=== PATIENT | female | born 1940 | race Caucasian/White ===

== ENCOUNTER 2023-02-21 18:12 | Observation (INO) | payer MEDICARE, SELFPAY ==
[2023-02-21] VITALS (21 sets, daily range): BP systolic 135–189; BP diastolic 74–110; PULSE 63–73; RESP 12–22; TEMP 36.5–36.7; O2SAT 16–99; BMI 32.9
--- NOTE | 2023-02-21 18:14 | ECG_ITS ---
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 Measurements Intervals [place] Rate: 69 P: 50 W[place]: 187 QRS: -31 QRSD: 145 T: -3 QT: 419 QTc: 451 Interpretive Statements SINUS RHYTHM LEFT AXIS DEVIATION [QRS AXIS < -30] RIGHT BUNDLE BRANCH BLOCK [120+ ms QRS DURATION, UPRIGHT V1, 40+ ms S IN I/aVL/V4/V5/V6] No previous ECG available for comparison Electronically Signed On 02-22-2023 1:07:43 CDT by Yuki Ojeda M.D. [email or web address].[employer]/store/OM/[id number]
--- NOTE | 2023-02-21 18:14 | XRR_ITS ---
PROCEDURE INFORMATION: Exam: XR Chest Exam date and time: 02/21/2023 6:58 PM Age: 82 years old Clinical indication: Chest wall pain; Additional info: Cp TECHNIQUE: Imaging protocol: Radiologic exam of the chest. Views: 1 view. COMPARISON: No relevant prior studies available. FINDINGS: Lungs: Mild interstitial pulmonary edema with superimposed atelectasis versus pneumonia in the left lingula and left lower lobe. Pleural spaces: No pleural effusion. No pneumothorax. Heart/Mediastinum: Cardiac silhouette is moderately enlarged. Mediastinal contours are unremarkable. Vasculature: Vascular calcifications in the aorta. The aorta is tortuous. Bones/joints: Bones are diffusely osteopenic. Degenerative changes in the spine and shoulders. Moderate scoliosis in the visualized spine. XR/XR chest 1V portable [id number] IMPRESSION: 1. Mild interstitial pulmonary edema with superimposed atelectasis versus pneumonia in the left lingula and left lower lobe. Recommend followup chest imaging to insure resolution of these findings. 2. Incidental/nonacute findings are listed in the report.
--- NOTE | 2023-02-21 18:38 | ED_ITS ---
HPI - Chest Pain General: Chief Complaint: Chest Pain Stated Complaint: Bp, Tightness in chest Time Seen by Provider: 02/21/23 18:38 History of Present Illness: 82-year-old female presents emergency department with complaints of feeling chest tightness and chest pain earlier today. She states the pain does not radiate. She is in no acute distress at present. She states she is recently been seen by her primary care provider and had blood pressure medication adjustments and she states that she feels like her blood pressure is significantly elevated despite taking her antihypertensive medications. She states that her chest tightness is a 3 out of 10 and nothing seems to make it better nothing seems to make it worse. Review of Systems General: Reports: 10 or more systems reviewed and unremarkable except in HPI and below Card: Reports: chest pain Physical Exam Narrative: EXAM NARRATIVE: Constitutional: the patient appears well nourished and with normal developement. Vital signs reviewed as documented. HENMT: Normocephalic, atraumatic. Extermal ears with normal appearance without drainage. Nose without drainage, normal appearance. Mucus membranes moist. Neck is supple, No jugular venous distension, trachea is midline, no appreciable carotid bruits. No lymphadenopathy. No meningeal signs. Flexion, extension and lateral rotation is without pain. Eyes: Pupils are equal, round, reactive to light and accomidation. No scleral icterus. Extra-ocular movement are intact. Thorax is symmetrical and with equal rise and fall with respirations. Resp: Lungs are clear to auscultation. No wheezes, rales, crackles or ronchi at pesent. Cardio: Regular rate and rhythm. Positive S1, S2. No appreciable murmurs, rubs or gallops. GI: Abdominal exam reveals normal bowel sounds to all quadrants. No organomegaly. No obvious palpable masses noted. No hepatomegaly appreciated. Soft, nontender to palpation. Extremity: Extremities are non-edematous and both femoral and pedal pulses are 2+ and equal bilaterally. Moves all extremities well, sensation in all extremities. Neuro: Alert and oriented x4, person, place, time and situation. Cranial nerves II through XII are grossly intact, there is no focal neurological deficits that I can appreciate at present. Motor strength in the upper and lower extremities are equal and bilateral 5/5. Psych: Cooperative, calm, normal thought process, appropriate judgment. Skin: No lesions, rashes. No gross abnormalities noted. Back: Symmetrical, no obvious deformity, No CVA tenderness Course Vital Signs: Vital signs: Vital Signs Temperature 97.9 F 02/23/23 07:46 Pulse Rate 60 02/23/23 13:11 Respiratory Rate 14 02/23/23 13:11 Blood Pressure 153/91 02/23/23 13:11 Pulse Oximetry 96 02/23/23 13:11 Oxygen Delivery Me thod Room Air 02/23/23 11:24 MDM - Chest Pain Medical Decision Making Physical exam completed and documented, I reviewed the patient's previous medical records and given her continued elevated blood pressure and hypertensive urgency I have contact the hospital physician for admission to the hospital. We have obtained a CBC and CMP as well as [facility] Medical Records I reviewed the patient's medical records. Lab Data I reviewed the patient's lab results. 02/22/23 04:19 02/22/23 04:19 Radiology Impressions Chest X-Ray 02/21/23 18:14 IMPRESSION: 1. Mild interstitial pulmonary edema with superimposed atelectasis versus pneumonia in the left lingula and left lower lobe. Recommend followup chest imaging to insure resolution of these findings. 2. Incidental/nonacute findings are listed in the report. Laboratory Results WBC 8.04 10^3/uL (3.29-11.43) 02/21/23 18:39 RBC 4.37 10^6/uL (3.85-5.65) 02/21/23 18:39 Hgb 14.00 g/dL (11.27-16.99) 02/21/23 18:39 Hct 42.3 % (36-47) 02/21/23 18:39 MCV 96.8 fl (85-98) 02/21/23 18:39 MCH 32.0 pg (27-33) 02/21/23 18:39 MCHC 33.1 g/dL (30-55) 02/21/23 18:39 RDW 13.2 % (12.1-15.1) 02/21/23 18:39 Plt Count 236 10^3/cmm (157-399) 02/21/23 18:39 MPV 10.4 fL (7.4-10.4) 02/21/23 18:39 Neut % (Auto) 49.2 % 02/21/23 18:39 Lymph % (Auto) 38.6 % 02/21/23 18:39 [place] % (Auto) 8.6 % 02/21/23 18:39 Eos % (Auto) 2.5 % 02/21/23 18:39 Baso % (Auto) 0.5 % 02/21/23 18:39 Neut # (Auto) 3.96 10^3/uL (1.8-7.7) 02/21/23 18:39 Lymph # (Auto) 3.1 10^3/uL (0.8-4.8) 02/21/23 18:39 [place] # (Auto) 0.7 10^3/uL (0.2-0.9) 02/21/23 18:39 Eos # (Auto) 0.2 10^3/uL (0.0-0.8) 02/21/23 18:39 Baso # (Auto) 0.0 10^3/uL (0.0-0.1) 02/21/23 18:39 Nucleated RBC % (auto) 0 % 02/21/23 18:39 Nucleated RBCs # 0.0 /100WBC 02/21/23 18:39 Sodium 131 mmol/L (136-145) L 02/21/23 18:39 Potassium 4.2 mmol/L (3.5-5.1) 02/21/23 18:39 Chloride 93 mmol/L (98-107) L 02/21/23 18:39 Carbon Dioxide 29 mmol/L (22-29) 02/21/23 18:39 Anion Gap 13.2 (5-19) 02/21/23 18:39 BUN 13 mg/dL (8-23) 02/21/23 18:39 Creatinine 0.8 mg/dL (0.5-0.9) 02/21/23 18:39 GFR Calculation Not Reportable 02/21/23 18:39 Glucose 105 mg/dL (65-115) 02/21/23 18:39 Calculated Osmolality 272 mOsm/kg (285-295) L 02/21/23 18:39 Calcium 9.5 mg/dL (8.5-10.5) 02/21/23 18:39 Total Bilirubin 0.4 mg/dL (0.15-1.2) 02/21/23 18:39 AST 23 U/L (0-32) 02/21/23 18:39 ALT 17 U/L (0-33) 02/21/23 18:39 Alkaline Phosphatase 82 U/L (35-105) 02/21/23 18:39 Troponin T Baseline 10 ng/L (0-10) 02/21/23 18:39 Troponin T 120 Minute 9.58 ng/L (0-10) 02/21/23 21:05 Delta Troponin T -0.42 ABS# (0-10) L 02/21/23 21:05 Total Protein 7.1 g/dL (6.6-8.7) 02/21/23 18:39 Albumin 4.0 g/dL (3.5-5.2) 02/21/23 18:39 Globulin 3.1 g/dL (1.3-4.6) 02/21/23 18:39 All radiology interpretation(s) finalized by discharge Discharge Plan Discharge Patient Disposition: Admitted As Inpatient Admit Provider: Joycelyn Mata Clinical Impression: Hypertensive urgency Condition: Stable Discharge Diet: Usual diet Discharge Activity: Resume usual activity Coding Level of Care Code ED Trust Officer for Syed Ambriz
[2023-02-21 18:55] LABS: Basophils % 0.5 %; Eosinophils # 0.2 10^3/uL (0.0-0.8); Eosinophils % 2.5 %; Hematocrit 42.3 % (36-47); Lymphocytes # 3.1 10^3/uL (0.8-4.8); Lymphocytes % 38.6 %; Mean Corpuscular HGB Conc 33.1 g/dL (30-55); Mean Corpuscular Volume 96.8 fl (85-98); Mean Platelet Volume 10.4 fL (7.4-10.4); Monocytes # 0.7 10^3/uL (0.2-0.9); Monocytes % 8.6 %; Neutrophils # 3.96 10^3/uL (1.8-7.7); Neutrophils % 49.2 %; Nucleated Red Blood Cells % 0 %; Platelet Count 236 10^3/cmm (157-399); Red Blood Count 4.37 10^6/uL (3.85-5.65); Red Cell Distribution Width 13.2 % (12.1-15.1); White Blood Count 8.04 10^3/uL (3.29-11.43)
[2023-02-21 19:06] LABS: Troponin(5th) Baseline 10 ng/L (0-10)
[2023-02-21 19:07] LABS: Alanine Aminotransferase 17 U/L (0-33); Alkaline Phosphatase 82 U/L (35-105); Anion Gap 13.2 (5-19); Aspartate Amino Transferase 23 U/L (0-32); Blood Urea Nitrogen 13 mg/dL (8-23); Calcium 9.5 mg/dL (8.5-10.5); Carbon Dioxide 29 mmol/L (22-29); Chloride 93 mmol/L (98-107); Globulin 3.1 g/dL (1.3-4.6); Glucose 105 mg/dL (65-115); Osmolality Calculated 272 mOsm/kg (285-295); Potassium 4.2 mmol/L (3.5-5.1); Sodium 131 mmol/L (136-145); Total Bilirubin 0.4 mg/dL (0.15-1.2); Total Protein 7.1 g/dL (6.6-8.7)
--- NOTE | 2023-02-21 20:14 | ECG_ITS ---
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 Measurements Intervals [place] Rate: 63 P: 64 [place]: 192 QRS: -27 QRSD: 148 T: -4 QT: 419 QTc: 429 Interpretive Statements SINUS RHYTHM BORDERLINE LEFT AXIS DEVIATION [QRS AXIS < -20] RIGHT BUNDLE BRANCH BLOCK [120+ ms QRS DURATION, UPRIGHT V1, 40+ ms S IN I/aVL/V4/V5/V6] MODERATE T-WAVE ABNORMALITY, CONSIDER LATERAL ISCHEMIA [-0.1+ mV T-WAVE IN I/aVL/V5/V6] Compared to ECG 02/21/2023 18:19:57 T-wave abnormality now present Possible ischemia now present Electronically Signed On 02-22-2023 1:35:02 CDT by Yuki Ojeda M.D. [id number]
[2023-02-21 21:44] LABS: Troponin 5 2HR 9.58 ng/L (0-10); Troponin 5 2HR Delta -0.42 ABS# (0-10)
[2023-02-21] MEDS: nitroglycerin 1 gm/inch oint Pkt 1 INCH TOPICAL (22:31)
--- NOTE | 2023-02-21 23:53 | PM.HP ---
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 As per the patient she had an episode of near syncope on Saturday morning with no other associated symptoms which resolved spontaneously. She visited her PCP on Saturday, when she again noted to have her blood pressure in 170-180. She was prescribed p.o. clonidine 0.1 mg 3 times a day as needed for high blood pressure. This morning again she was found to have blood pressure of 182/107 and she took 2 aspirins and 2 doses of p.o. clonidine as recommended by her PCP. But the blood pressure still did not respond and she came to ER. In ER she was found to have blood pressure of 136/94, hence did not receive any medications. When she was ready for discharge from ER she started feeling bandlike pressure around her chest and again systolic blood pressure 180s. She had 2 discrete episodes of chest pressure in ER. There is no history of associated fever cold cough nausea vomiting shortness of breath diarrhea or urinary complaints. Never has been hospitalized before, no history of any major medical illness in the past. Review of Systems Narrative: As per HPI Medications/Allergies Home Medications Medication Instructions Recorded Confirmed Last Taken Type aspirin 81 mg capsule,delayed 81 mg PO DAILY 02/21/23 02/21/23 02/21/23 History release cholecalciferol (vitamin D3) 25 mcg PO DAILY 02/21/23 02/21/23 02/21/23 History clonidine HCl 0.1 mg tablet 0.1 mg PO 3XD PRN Hypertension 02/21/23 02/21/23 02/21/23 History 0.1 mg coenzyme Q10 10 mg PO DAILY 02/21/23 02/21/23 02/21/23 History levothyroxine 75 mcg tablet 75 mcg PO 1XD 02/21/23 02/21/23 02/21/23 History lysine 500 mg tablet 500 mg PO BID 02/21/23 02/21/23 02/21/23 History metoprolol tartrate 25 mg tablet mg 02/21/23 02/21/23 Unknown History metoprolol tartrate 50 1 tab PO BID 02/21/23 02/21/23 02/21/23 History mg-hydrochlorothiazide 25 mg tablet simvastatin 40 mg/5 mL (8 mg/mL) 20 mg PO QPM 02/21/23 02/21/23 02/21/23 History oral suspension Allergies Allergy/AdvReac Type Severity Reaction Status Date / Time No Known Allergies Allergy Verified 02/21/23 18:25 Vitals/I&O/Wt Last Vital Signs Temp 98.0 F 02/21/23 23:17 Pulse 73 02/21/23 23:17 Resp 18 02/21/23 23:17 BP 189/103 02/21/23 23:17 Pulse Ox 97 02/21/23 23:17 O2 Del Method Room Air 02/21/23 23:17 Weight last 48 hrs Weight 81.647 kg Physical Exam Narrative: She is alert awake oriented x3 not in acute distress, no complaint of chest pain currently Chest clear to auscultation bilaterally Cardiovascular normal heart sounds no murmurs Abdomen soft nontender nondistended normal bowel sounds Extremities no edema noted bilateral lower extremity Data 02/21/23 18:39 02/21/23 18:39 CXR: Radiologist's impression: FINDINGS: Lungs: Mild interstitial pulmonary edema with superimposed atelectasis versus pneumonia in the left lingula and left lower lobe. Pleural spaces: No pleural effusion. No pneumothorax. Heart/Mediastinum: Cardiac silhouette is moderately enlarged. Mediastinal contours are unremarkable. Vasculature: Vascular calcifications in the aorta. The aorta is tortuous. Bones/joints: Bones are diffusely osteopenic. Degenerative changes in the spine and shoulders. Moderate scoliosis in the visualized spine. EKG 1: My Interpretation: Normal sinus rhythm Left axis deviation Right bundle branch block T wave inversions in V2 to V5 A&P Assessment and plan (1) Hypertensive urgency: Plan 82 year old female with history of hypertension hypothyroidism hyperlipidemia Restorationism with history of near syncope 5 days ago, hypertensive urgency since 4 to 5 days with systolic blood pressure [id number] and and 2 episodes of chest pressure like symptoms in ER. Cannot rule out ACS 2 sets of troponins negative, EKG showed no acute ST-T changes. Follow-up troponins We will check 2D echo in a.m. Resume home medications with clonidine 0.1 mg 3 times daily scheduled. IV Pepcid 20 mg twice a day for stress ulcer prophylaxis Subcutaneous Lovenox 40 mg daily for DVT prophylaxis She is full code for now as per discussion. She has a advance directive signed which mentions DNR if terminally ill. Attestations Medical Necessity Statement*: She needs less than 2 days of hospitalization. She is here for hypertensive urgency and chest pain needs further cardiac work-up with 2D echo troponins and medication adjustment for uncontrolled hypertension. Time Spent in Patient Care: 30 minutes Coding Level of Care Code Acute Code for Chg Fwd Diagnoses Hypertensive urgency I16.0 Time Spent (min) 30
[2023-02-22] VITALS (13 sets, daily range): BP systolic 108–184; BP diastolic 60–103; PULSE 58–81; RESP 16–19; TEMP 36.4–37.1; O2SAT 91–97
[2023-02-22] MEDS: famotidine 20 mg/2 mL INJ IVP ×2 (00:06→11:42)
[2023-02-22] MEDS: cloNIDine 0.1 mg Tablet PO (00:06)
[2023-02-22] MEDS: metoprolol tartrate 50 mg Tablet PO ×3 (00:06→20:04)
[2023-02-22] MEDS: enoxaparin 40 mg/0.4 mL Syringe SUBCUT ×2 (00:07→23:11)
--- NOTE | 2023-02-22 00:14 | ECG_ITS ---
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 Measurements Intervals [place] Rate: 68 P: 70 [place]: 184 QRS: -33 QRSD: 149 T: -13 QT: 415 QTc: 444 Interpretive Statements SINUS RHYTHM LEFT AXIS DEVIATION [QRS AXIS < -30] RIGHT BUNDLE BRANCH BLOCK [120+ ms QRS DURATION, UPRIGHT V1, 40+ ms S IN I/aVL/V4/V5/V6] MINIMAL VOLTAGE CRITERIA FOR LVH, CONSIDER NORMAL VARIANT [MEETS CRITERIA IN ONE OF: R(aVL), S(V1), R(V5), R(V5/V6)+S(V1)] MODERATE T-WAVE ABNORMALITY, CONSIDER LATERAL ISCHEMIA [-0.1+ mV T-WAVE IN I/aVL/V5/V6] Compared to ECG 02/21/2023 20:47:06 No significant changes Electronically Signed On 02-22-2023 1:38:59 CDT by Yuki Ojeda M.D. [id number]
[2023-02-22] MEDS: hydroCHLOROthiazide 25 mg Tablet PO ×3 (00:24→17:49)
--- NOTE | 2023-02-22 00:45 | PC.NURSE ---
Patient arrived from Er to floor 22:45.
[2023-02-22 00:53] LABS: Troponin 5 6HR 8.98 ng/L (0-10); Troponin 5 6HR Delta -1.02 ng/L (0-12)
--- NOTE | 2023-02-22 01:54 | ECG_ITS ---
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 Measurements Intervals [place] Rate: 59 P: 66 MA: 198 QRS: -33 QRSD: 153 T: -11 QT: 435 QTc: 434 Interpretive Statements SINUS BRADYCARDIA LEFT AXIS DEVIATION [QRS AXIS < -30] RIGHT BUNDLE BRANCH BLOCK [120+ ms QRS DURATION, UPRIGHT V1, 40+ ms S IN I/aVL/V4/V5/V6] MODERATE T-WAVE ABNORMALITY, CONSIDER LATERAL ISCHEMIA [-0.1+ mV T-WAVE IN I/aVL/V5/V6] Compared to ECG 02/22/2023 00:19:55 Sinus rhythm no longer present T-wave abnormality still present Possible ischemia still present Electronically Signed On 02-22-2023 8:59:14 CDT by Geovani Feliciano M.D. [id number]
[2023-02-22] MEDS: sodium chloride 0.9% 500 ML 999 ML IV ×2 (02:23→05:47)
--- NOTE | 2023-02-22 03:43 | PC.NURSE ---
Patient BP was 93/69, manually 98/56. notified. EKG performed and 500mL bolus NS administered.
[2023-02-22 05:08] LABS: Basophils % 0.2 %; Eosinophils # 0.2 10^3/uL (0.0-0.8); Eosinophils % 2.4 %; Hematocrit 36.5 % (36-47); Lymphocytes # 2.5 10^3/uL (0.8-4.8); Lymphocytes % 30.9 %; Mean Corpuscular HGB Conc 33.2 g/dL (30-55); Mean Corpuscular Hemoglobin 32.2 pg (27-33); Mean Corpuscular Volume 97.1 fl (85-98); Mean Platelet Volume 11.4 fL (7.4-10.4); Monocytes # 0.5 10^3/uL (0.2-0.9); Monocytes % 6.6 %; Neutrophils # 4.76 10^3/uL (1.8-7.7); Neutrophils % 59.4 %; Nucleated Red Blood Cells % 0 %; Platelet Count 212 10^3/cmm (157-399); Red Blood Count 3.76 10^6/uL (3.85-5.65); Red Cell Distribution Width 13.2 % (12.1-15.1); White Blood Count 8.02 10^3/uL (3.29-11.43)
[2023-02-22 05:30] LABS: Alanine Aminotransferase 15 U/L (0-33); Albumin Level 3.4 g/dL (3.5-5.2); Alkaline Phosphatase 64 U/L (35-105); Aspartate Amino Transferase 21 U/L (0-32); Blood Urea Nitrogen 11 mg/dL (8-23); Carbon Dioxide 26 mmol/L (22-29); Chloride 99 mmol/L (98-107); Globulin 3.1 g/dL (1.3-4.6); Glucose 117 mg/dL (65-115); Magnesium 2.1 mg/dL (1.7-2.3); NT Pro B Type Natriuretic Pept 87 pg/mL (0-450); Osmolality Calculated 282 mOsm/kg (285-295); Sodium 136 mmol/L (136-145); Total Bilirubin 0.5 mg/dL (0.15-1.2); Total Protein 6.5 g/dL (6.6-8.7)
[2023-02-22 05:43] LABS: Anion Gap 14.6 (5-19); Potassium 3.6 mmol/L (3.5-5.1)
--- NOTE | 2023-02-22 05:59 | PC.NURSE ---
Patient BP was 95/66 @ 05:30, Dr Mata was notified, 500mL NS bolus was ordered and administered @ 06:[address] jerome.
--- NOTE | 2023-02-22 06:38 | P.EN_ITS ---
Event Note Event Note: Since patient had persistent blood pressure around 180/100, she was given her home medications hydrochlorothiazide 25 mg metoprolol 50 mg and clonidine 0.1 mg last night. Since then her blood pressure went down to 90/60, she was feeling mild dizziness hence she received 1 L of fluid bolus overnight her current blood pressure is 108/60. P.o. clonidine is on hold. Check 2D echo and adjust blood pressure medications accordingly. 3 sets of troponins were negative, EKG no new changes since admission. Event Notes Attestations Time Spent in Patient Care: Greater than 35 minutes (>than 50% of time spent in counselling and/or direct pt care on unit) .
--- NOTE | 2023-02-22 07:14 | PC.NURSE ---
Clonidine 0.1 mg put on hold due to low BP per Dr Mata.
[2023-02-22] MEDS: levothyroxine 75 mcg Tablet PO (08:18)
[2023-02-22] MEDS: aspirin 81 mg EC Tablet PO (08:19)
--- NOTE | 2023-02-22 09:14 | PC.CHAP ---
Pastoral Care Encounter/Spiritual Assessment Type of Contact [] Declined drama therapist visit [] Patient/Family/Request visit [] Outpatient visit [] Follow-up visit [] Physician referral [] Code/Alert [x] Routine visit [] Staff referral [] Actively dying [] Patient sleeping [x] Family support [] [] Out of room [] Palliative care [] [] Receiving care in room [] Pre-surgical visit [] Trauma [] Long length of stay [] ICU visit [] Other: Relational/Emotional Strength [] Patient feels connected with others/family/visitors/staff [] Distress [] Loneliness/isolation [] Abandonment Spirituality of Patient [] Person of Mariama [] Attends [employer] of their [place] [] Believes in Prayer [] Reads Bible or Christian materials [x] There are Spiritual issues to be addressed Data Miner Interventions [] Prayer [x] Active listening [x] Non-anxious presence [] Spiritual/emotional support [] Crisis/trauma care [] Spiritual counseling [] Bereavement support [] Provided bereavement packet [] Provided Bible/devotional materials [] Provided toy/stuffed animal, coloring book to patient or family member [] Provided Communion [] Anointing/[place] [] Salvation [x] Completed spiritual assessment [] Other: Impact on Illness or Injury [] Angry [] Fearful [] Anxious [] Often cries [] Exhaustion [] Unable to work [] Unable to attend denominational [] Unable to walk/stand [] Unable to read [] Unable to drive [] Unable to eat/drink [] Unable to sleep [] Unable to be with family [] Patient intubated [] Other: Summary Time spent with patient 5 min
--- NOTE | 2023-02-22 14:43 | USCV_ITS ---
Britany Frazier Age: 82 Gender: F : 1940 Exam Date: 02/22/2023 15:19 Ordering Phys: Gemini Figueroa MD Technologist: Galo Jasmine [place] [facility] [place]: chest pain BP: 121 / 70 HR: 71 Rhythm: Sinus Technical Quality: Adequate MEASUREMENTS (Male / Female) Normal Values 2D ECHO LVOT Diameter 2.0 cm LV Ejection Fraction MOD 2C 75.8 % LV Ejection Fraction 2C AL 76.4 % LA Diameter 3.2 cm LA Width 3.2 cm LA Height 4.6 cm RA Width 2.4 cm RA Height 4.4 cm Aorta at Sinotubular Diameter 2.6 cm IVC Diameter 1.8 cm M-MODE Aortic Annulus Diameter 2.0 cm LA Ao Ratio MM 1.6 MV E Point Septal Separation 0.3 cm DOPPLER AV Peak Velocity 115.0 cm/s LVOT Peak Velocity 102.0 cm/s AV Area Cont Eq vti 2.6 cm squared AV Area Cont Eq pk 2.8 cm squared MV Peak Velocity 102.0 cm/s MV Area PHT 4.0 cm squared Mitral E to A Ratio 0.8 MV E' Velocity 41.0 cm/s Mitral E to MV E' Ratio 14.9 Mitral E to LV E' Lateral Ratio 17.2 Mitral E to LV E' Septal Ratio 13.3 TR Peak Velocity 126.3 cm/s TR Peak Gradient 6.4 mmHg TR Mean Velocity 90.0 cm/s TR Mean Gradient 3.7 mmHg TR Velocity Time Integral 27.8 cm Right Atrial Pressure 3.0 mmHg Pulmonary Artery Systolic Pressu 9.4 mmHg PV Peak Velocity 81.0 cm/s RV Acceleration Time 0.1 s RV Ejection Time 0.3 s RV AcT/ET 0.4 FINDINGS Left Ventricle Normal left ventricular cavity size. Increased left ventricular wall thickness. Normal left ventricular systolic function. Left ventricular ejection fraction is estimated at 65 %. No regional wall motion abnormalities. Right Ventricle Normal right ventricular size and systolic function. Right Atrium Normal right atrial size. Left Atrium Mildly increased left atrial size. Mitral Valve Mitral annular calcification. Aortic Valve Aortic valve not well visualized. No aortic valve stenosis. Tricuspid Valve Tricuspid valve not well visualized. Pulmonic Valve Pulmonic valve not well visualized. No pulmonary valve stenosis. Trace pulmonary valve regurgitation. Pericardium No pericardial effusion. Aorta Normal size aortic root and proximal ascending aorta. IVC Inferior vena cava not visualized. CONCLUSIONS 1. This is a technically difficult study. Optison was used per protocol. 2. Normal left ventricular cavity size and systolic function. Increased left ventricular wall thickness. Left ventricular ejection fraction is estimated at 65 %. No regional wall motion abnormalities. 3. No prior similar studiees to compare. Margie Hernández MD (Electronically Signed) Final Date: 23 February 2023 09:29 S
--- NOTE | 2023-02-22 14:45 | P.PN_ITS ---
Subjective Subjective: Overnight events noted. Patient had drop in blood pressure after receiving p.o. clonidine. This has since been discontinued. She was receiving IV fluid bolus to improve her blood pressure. Echocardiogram is still pending. She is currently chest pain-free. Medications: Reviewed: Yes Vitals/I&O/Wt Last Vital Signs Temp 98.5 F 02/22/23 11:33 Pulse 60 02/22/23 11:33 Resp 17 02/22/23 11:33 BP 121/70 02/22/23 11:33 Pulse Ox 95 02/22/23 11:33 O2 Del Method Room Air 02/22/23 11:33 02/21/23 02/22/23 02/22/23 22:59 06:59 14:59 Intake Total 620 / 620 1100 / 1100 Balance 620 / 620 1100 / 1100 Weight last 48 hrs Weight 81.647 kg Physical Exam Narrative: General: No acute distress, AO x3 HEENT: PERRLA, pupils bilaterally equal and reactive, pallors not present Chest: Normal vesicular breath sounds, no added sounds, equal good air entry bilaterally CVS: S1-S2 regular, no murmurs, no tachycardia, no gallops, no rubs Abdomen: Soft, nontender, no organomegaly, bowel sounds present Neuro: No focal deficits, no facial deformity, AO x3, power 5/5 in all limbs Data 02/22/23 04:19 02/22/23 04:19 A&P Assessment and plan (1) Hypertensive urgency: Plan 82 year old female with history of hypertension hypothyroidism hyperlipidemia Orthodox with history of near syncope 5 days ago, hypertensive urgency since 4 to 5 days with systolic blood pressure [id number] and and 2 episodes of chest pressure like symptoms in ER. #Hypertensive urgency. Patient reported blood pressure of 196 systolic prior to coming to the emergency room. Upon first arrival her blood pressure was 189/103. Overnight she received clonidine 0.1 mg which dropped her blood pressure to 90/60. Discontinue clonidine for blood pressure maintenance. Be cumbersome for patient to continue with a 3 times a day medication. Start amlodipine 5 mg every afternoon and monitor for response of blood pressure. #Atypical chest pain May be related to hypertensive urgency. Chest pain has not recurred since her time in the emergency room EKG shows T wave inversions in leads V4, V5 and V6, no known past history of coronary artery disease. Troponin series with trend of 10--> 9.5--> 8.9, low concern for acute MD. Pending echocardiogram. Subcutaneous Lovenox 40 mg daily for DVT prophylaxis She is full code for now as per discussion. She has a advance directive signed which mentions DNR if terminally ill. Attestations Medical Necessity Statement*: Pending echocardiogram, addition of pain medication and monitor for response. Coding Level of Care Code Acute Code for [facility] Fwd Diagnoses Hypertensive urgency I16.0
--- NOTE | 2023-02-22 15:00 | PC.SOCIAL ---
IMM Update pg 2 of IMM not updated @ this time as patient is currently in observation status.
[2023-02-22] MEDS: perflutren protein-a microsphr 0.22 mg/mL SDV 3 mL IV (16:02)
[2023-02-22] MEDS: amlodipine 5 mg Tablet PO (17:47)
[2023-02-22] MEDS: atorvastatin 40 mg Tablet 20 MG PO (17:49)
--- NOTE | 2023-02-22 19:53 | PC.NURSE ---
Informed Dr Mata of decreasing BP from earlier. BP now is 150/80. Will give Metoprolol as ordered for now.
[2023-02-23 03:55] VITALS: BP 133/77; PULSE 72; RESP 17; TEMP 36.8; O2SAT 94
[2023-02-23 04:13] VITALS: PULSE 93
[2023-02-23 07:46] VITALS: BP 170/91; PULSE 73; RESP 17; TEMP 36.6; O2SAT 93
[2023-02-23] MEDS: aspirin 81 mg EC Tablet PO (08:44)
[2023-02-23] MEDS: hydroCHLOROthiazide 25 mg Tablet PO (08:44)
[2023-02-23] MEDS: levothyroxine 75 mcg Tablet PO (08:44)
[2023-02-23] MEDS: metoprolol tartrate 50 mg Tablet PO (08:44)
[2023-02-23 11:24] VITALS: BP 153/91; PULSE 60; RESP 14; O2SAT 96
[2023-02-23] MEDS: amlodipine 5 mg Tablet PO (11:49)
--- NOTE | 2023-02-23 12:34 | PM.DCS ---
Discharge Providers Date of Admission: 02/21/23 22:16 Date of Discharge: February 23, 2023 Attending Provider at Admission: Joycelyn Mata MD Attending Provider at Discharge: Gemini Figueroa MD Primary Care Provider: GEOVANNI Shore Diagnoses at Discharge Discharge Diagnosis (1) Hypertensive urgency: Details from hospital stay: Britany Frazier is a 82 year old female with history of hypertension hypothyroidism hyperlipidemia Yazdanism presented with high blood pressure with systolic blood pressure in 180s.? As per the patient she had an episode of near syncope on Saturday morning with no other associated symptoms which resolved spontaneously.? She visited her PCP on Saturday, when she again noted to have her blood pressure in 170-180.? She was prescribed p.o. clonidine 0.1 mg 3 times a day as needed for high blood pressure.? She came to the ER when her BP at home remained at 180 systolic an dshe developed a band like sensation in the lower chest. This sensation was transient and resolved. She was admitted for ACS rule out, WKG did not show any acute ST-T wave changes. Troponin series checked and unremarkable with trend of 10 --> 9.5--> 8.9. Echocardiogram showed Normal left ventricular cavity size and systolic function. ?Increased left ventricular wall thickness.? Left ventricular ?ejection fraction is estimated at 65 %. No regional wall motion ?abnormalities. Overall low concern for ACS. Overnight on 02/22 she received her home medications including clonidine 0.1mg following which her BP dropped acutely from 180 to 90 systolic. She complained of dizziness. For this reason, clonidine has been discontinued at this time and instead transitioned to po amlodipine 10mg daily. Instructed to keep a BP log at home an dtake tp PCP for review in one week. Status: Acute Reason for Visit Reason for Visit: Bp, Tightness in chest Physical Exam Narrative: General: No acute distress, AO x3 HEENT: PERRLA, pupils bilaterally equal and reactive, pallors not present Chest: Normal vesicular breath sounds, no added sounds, equal good air entry bilaterally CVS: S1-S2 regular, no murmurs, no tachycardia, no gallops, no rubs Abdomen: Soft, nontender, no organomegaly, bowel sounds present Neuro: No focal deficits, no facial deformity, AO x3, power 5/5 in all limbs Discharge Data Studies Completed and Pending Completed Studies During Hospitalization Category Date Time Status XR chest 1V portable [id number] Stat Exams 02/21/23 18:14 Completed CV. echo wo/w contrast [id number] Routine Ultrasound 02/22/23 14:43 Completed Pending at discharge Category Date Time Status CA echo doppler complete Routine Exams 02/21/23 23:52 Stop Req Radiology Impressions Chest X-Ray 02/21/23 18:14 IMPRESSION: 1. Mild interstitial pulmonary edema with superimposed atelectasis versus pneumonia in the left lingula and left lower lobe. Recommend followup chest imaging to insure resolution of these findings. 2. Incidental/nonacute findings are listed in the report. Laboratory Results WBC 8.02 10^3/uL (3.29-11.43) 02/22/23 04:19 RBC 3.76 10^6/uL (3.85-5.65) L 02/22/23 04:19 Hgb 12.10 g/dL (11.27-16.99) 02/22/23 04:19 Hct 36.5 % (36-47) 02/22/23 04:19 MCV 97.1 fl (85-98) 02/22/23 04:19 MCH 32.2 pg (27-33) 02/22/23 04:19 MCHC 33.2 g/dL (30-55) 02/22/23 04:19 RDW 13.2 % (12.1-15.1) 02/22/23 04:19 Plt Count 212 10^3/cmm (157-399) 02/22/23 04:19 MPV 11.4 fL (7.4-10.4) H 02/22/23 04:19 Neut % (Auto) 59.4 % 02/22/23 04:19 Lymph % (Auto) 30.9 % 02/22/23 04:19 [place] % (Auto) 6.6 % 02/22/23 04:19 Eos % (Auto) 2.4 % 02/22/23 04:19 Baso % (Auto) 0.2 % 02/22/23 04:19 Neut # (Auto) 4.76 10^3/uL (1.8-7.7) 02/22/23 04:19 Lymph # (Auto) 2.5 10^3/uL (0.8-4.8) 02/22/23 04:19 [place] # (Auto) 0.5 10^3/uL (0.2-0.9) 02/22/23 04:19 Eos # (Auto) 0.2 10^3/uL (0.0-0.8) 02/22/23 04:19 Baso # (Auto) 0.0 10^3/uL (0.0-0.1) 02/22/23 04:19 Nucleated RBC % (auto) 0 % 02/22/23 04:19 Nucleated RBCs # 0.0 /100WBC 02/22/23 04:19 Sodium 136 mmol/L (136-145) 02/22/23 04:19 Potassium 3.6 mmol/L (3.5-5.1) 02/22/23 04:19 Chloride 99 mmol/L (98-107) 02/22/23 04:19 Carbon Dioxide 26 mmol/L (22-29) 02/22/23 04:19 Anion Gap 14.6 (5-19) 02/22/23 04:19 BUN 11 mg/dL (8-23) 02/22/23 04:19 Creatinine 0.7 mg/dL (0.5-0.9) 02/22/23 04:19 GFR Calculation Not Reportable 02/22/23 04:19 Glucose 117 mg/dL (65-115) H 02/22/23 04:19 Calculated Osmolality 282 mOsm/kg (285-295) L 02/22/23 04:19 Calcium 9.0 mg/dL (8.5-10.5) 02/22/23 04:19 Magnesium 2.1 mg/dL (1.7-2.3) 02/22/23 04:19 Total Bilirubin 0.5 mg/dL (0.15-1.2) 02/22/23 04:19 AST 21 U/L (0-32) 02/22/23 04:19 ALT 15 U/L (0-33) 02/22/23 04:19 Alkaline Phosphatase 64 U/L (35-105) 02/22/23 04:19 Troponin T Baseline 10 ng/L (0-10) 02/21/23 18:39 Troponin T 120 Minute 9.58 ng/L (0-10) 02/21/23 21:05 Delta Troponin T -0.42 ABS# (0-10) L 02/21/23 21:05 Troponin T Hi Sens 6Hr 8.98 ng/L (0-10) 02/22/23 00:13 Troponin T Hi Sens 6Hr Delta -1.02 ng/L (0-12) L 02/22/23 00:13 NT-Pro-B Natriuret Pep 87 pg/mL (0-450) 02/22/23 04:19 Total Protein 6.5 g/dL (6.6-8.7) L 02/22/23 04:19 Albumin 3.4 g/dL (3.5-5.2) L 02/22/23 04:19 Globulin 3.1 g/dL (1.3-4.6) 02/22/23 04:19 Vitals Last Vital Signs Temp 97.9 F 02/23/23 07:46 Pulse 60 02/23/23 11:24 Resp 14 02/23/23 11:24 BP 153/91 02/23/23 11:24 Pulse Ox 96 02/23/23 11:24 O2 Del Method Room Air 02/23/23 11:24 Discharge Plan Discharge Patient Disposition: Home Condition: Stable Prescriptions: New aspirin 81 mg Tablet,Delayed Release (Dr/Ec) 81 mg PO DAILY Qty: 0 0RF amlodipine 10 mg Tablet 10 mg PO DAILY 30 Days Qty: 30 0RF Continued metoprolol ta-hydrochlorothiaz 50-25 mg tablet 1 tab PO BID levothyroxine 75 mcg tablet 75 mcg PO 1XD lysine 500 mg Tablet 500 mg PO BID simvastatin 40 mg/5 mL (8 mg/mL) Suspension 20 mg PO QPM cholecalciferol (vitamin D3) capsule 25 mcg PO DAILY coenzyme Q10 capsule 10 mg PO DAILY Aspir-81 81 mg Tablet,Delayed Release (Dr/Ec) 81 mg PO DAILY Discontinued clonidine HCl 0.1 mg tablet 0.1 mg PO 3XD PRN (Reason: Hypertension) Discharge Orders: Discharge Order (Routine); Ordered 02/23/23 Ordered By: Gemini Figueroa Referrals: Alycia Travis, SENIOR SOFTWARE DEVELOPMENT MANAGER [Primary Care Provider] - (Please call Alycia Travis's Office on Saturday at [phone] to schedule a follow up appointment. Thank you.) Discharge Diet: Usual diet Discharge Activity: Resume usual activity Patient Instructions: Opioid Safety Discharge Attestations Time Spent in Discharge Care*: greater than 30 min Quality Metrics Clinical Quality Measures [ No reported AMI, CVA or VTE this stay] Coding Level of Care Code Acute Code for Chg Fwd Diagnoses Hypertensive urgency I16.0
--- NOTE | 2023-02-23 12:55 | ECG_ITS ---
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 Measurements Intervals [place] Rate: 62 P: 56 VA: 177 QRS: -32 QRSD: 151 T: -8 QT: 433 QTc: 443 Interpretive Statements SINUS RHYTHM LEFT AXIS DEVIATION [QRS AXIS < -30] RIGHT BUNDLE BRANCH BLOCK [120+ ms QRS DURATION, UPRIGHT V1, 40+ ms S IN I/aVL/V4/V5/V6] MINIMAL VOLTAGE CRITERIA FOR LVH, CONSIDER NORMAL VARIANT [MEETS CRITERIA IN ONE OF: R(aVL), S(V1), R(V5), R(V5/V6)+S(V1)] Compared to ECG 02/22/2023 02:02:30 Sinus bradycardia no longer present T-wave abnormality no longer present Possible ischemia no longer present Electronically Signed On 02-24-2023 10:56:29 CDT by Margie Hernández M.D. [email or web address]
[2023-02-23 13:11] VITALS: BP 153/91; PULSE 60; RESP 14; O2SAT 96
--- NOTE | 2023-02-23 13:28 | PC.NURSE ---
Pt IV was removed before discharge at 13:18 pt tolerated well and the catheter was intact upon removal, 2x2 and coban used.
== END 2023-02-23 13:27 | disposition home or self-care (01) ==
LOC: ER 19:43 → CSU 22:21
PROVIDERS: Emergency Medicine; Admitting Provider Internal Medicine; Emergency Provider Internal Medicine; PCP Nurse Practitioner Family; Visit Provider Student in an Organized Health Care Education/Training Program
DX: I16.0 Hypertensive urgency (principal); I10 Essential (primary) hypertension; E03.9 Hypothyroidism, unspecified; E78.5 Hyperlipidemia, unspecified; J81.1 Chronic pulmonary edema; I45.10 Unspecified right bundle-branch block; Z79.82 Long term (current) use of aspirin
CPT/HCPCS: 36415; 71045; 80053; 83735; 83880; 84484; 85025; 93005; 96372; 96374; 96376; 99285; C8929; G0378; J1650; J3490; J7040; Q9956